=== PATIENT | female | born 1950 | race Caucasian/White ===

== ENCOUNTER 2023-05-24 07:13 | Observation (INO) | payer MEDICARE, OTHER ==
[2023-05-24 07:43] LABS: #Eosinphils 0.1 thou/uL (0.0-0.7); #Monocytes 0.3 thou/uL (0.11-0.59); #Neutrophils 2.7 thou/uL (1.40-6.50); %Basophils 0.9 % (0.0-1.0); %Eosinophils 2.4 % (0.0-10.0); %Lymphocytes 30.1 % (21.0-51.0); %Monocytes 7.2 % (0.0-10.0); %Neutrophils 59.2 % (42.0-75.0); Hematocrit 40.2 % (36.0-47.0); Hemoglobin 13.7 g/dL (12.0-16.0); Mean Corpuscular HGB CONC 34.1 g/dL (32.0-36.0); Mean Corpuscular Hemoglobin 32.2 pg (27.0-31.0); Mean Corpuscular Volume 94.6 fl (78.0-98.0); Mean Platelet Volume 10.1 fL (7.4-10.4); Platelet Count 203 10x3/uL (130-400); RBC Distribution Width 12.4 % (11.5-14.5); Red Blood Cell (RBC) Count 4.25 mill/uL (4.20-5.40); White Blood Cell (WBC) Count 4.6 10x3/uL (4.8-10.8)
[2023-05-24 08:02] LABS: PTT 26.5 sec (22.9-36.1)
[2023-05-24 08:08] LABS: ALT (SGPT) 14 U/L (8-55); AST (SGOT) 17 U/L (5-34); Albumin 4.4 g/dL (3.4-4.8); Alkaline Phosphatase 69 U/L (40-110); Anion Gap 15 mmol/L (10-20); BUN (Urea Nitrogen) 14 mg/dL (9.8-20.1); Bilirubin, Total 0.9 mg/dL (0.2-1.2); Calc. Creatinine Clearance 0 mL/min (70-130); Calcium 9.4 mg/dL (7.8-10.44); Carbon Dioxide 23 mmol/L (23-31); Chloride 107 mmol/L (98-107); Estimated GFR 61; Globulin 3.3 g/dL (2.4-3.5); Glucose 105 mg/dL (83-110); Potassium 3.2 mmol/L (3.5-5.1); Protein, Total 7.7 g/dL (5.8-8.1); Sodium 142 mmol/L (136-145)
[2023-05-24 08:26] LABS: Bacteria/HPF None Seen HPF (None Seen); Bilirubin Negative (Negative); Blood, Urine Negative (Negative); CAUTI Indications for Culture Alt mental st,lethar; Clarity Clear (Clear); Glucose, Urine (Dipstick) Normal (Negative); Ketone, Urine Negative (Negative); Leukocyte Negative Leu/uL (Negative); Nitrite Negative (Negative); Protein, Urine (Dipstick) Negative (Neg-Trace); RBC/HPF None Seen HPF (0-3); Specific Gravity, Urine 1.023 (1.002-1.036); Squamous Epithelial None Seen HPF (0-3); Urobilinogen Normal mg/dL (Less than 2); WBC/HPF 0-3 HPF (0-3); pH, Urine 6.5 (5.0-9.0)
[2023-05-24 08:29] LABS: Troponin I Less than 0.010 ng/mL (< 0.028)
[2023-05-24 08:29] LABS: Urine Culture Reflex No No
[2023-05-24] MEDS ORDERED: Aspirin Chewable 81 MG TAB ONE (09:26)
[2023-05-24] MEDS ORDERED: Senokot S 8.6-50 MG TAB PO PRN (09:39)
[2023-05-24] MEDS ORDERED: Ondansetron PF 4 MG/2 ML Vial IVP PRN (09:39)
[2023-05-24] MEDS ORDERED: Acetaminophen 325 MG TAB PO PRN (09:39)
[2023-05-24] MEDS ORDERED: Bisacodyl 5 MG TAB PO PRN (09:39)
[2023-05-24] MEDS ORDERED: hydrALAZINE 20 MG/ML VIAL SLOW IVP PRN (09:39)
[2023-05-24] MEDS ORDERED: Bisacodyl 10 MG SUPP PR PRN (09:39)
[2023-05-24] MEDS ORDERED: Labetalol HCl 100 MG/20 ML VIAL SLOW IVP PRN (09:39)
[2023-05-24] MEDS ORDERED: Electrolyte Replacement Protocol 1 EACH FS SCH (10:00)
[2023-05-24 10:04] LABS: Amphetamine Not Detected (NotDetected); Barbiturates Screen Not Detected (NotDetected); Benzodiazepine Screen Not Detected (NotDetected); Cocaine Metabolite Screen Not Detected (NotDetected); Methadone Not Detected (NotDetected); Methamphetamine Not Detected (NotDetected); Opiate Screen Not Detected (NotDetected); Oxycodone Screen Not Detected (NotDetected); Phencyclidine (PCP) Not Detected (NotDetected); THC/Cannabinoid Screen Not Detected (NotDetected); Tricyclic Screen Not Detected (NotDetected)
[2023-05-24] MEDS ORDERED: Electrolyte Replacement Protocol FS PRN (10:15)
[2023-05-24] MEDS ORDERED: Iopamidol-370 76% 500 ML MDV (1 ML CHARGE) ONE (10:43)
[2023-05-24] MEDS ORDERED: Polyethylene Glycol 3350 17 GM Packet PO PRN (10:53)
[2023-05-24] MEDS ORDERED: Polyethylene Glycol 3350 17 GM Packet PO SCH (11:00)
[2023-05-24 11:17] LABS: Hemoglobin A1c 5.7 % (4.0-6.0)
[2023-05-24] MEDS ORDERED: Polyethylene Glycol 3350 17 GM Packet ONE (12:43)
[2023-05-24] MEDS ORDERED: Potassium Chloride 20 MEQ/100 ML PREMIX BAG ONE ×2 (12:43→16:13)
[2023-05-24] MEDS: Potassium Chloride 20 MEQ in Premix 1 BAG IVPB SCH ×2 (12:50→16:15)
[2023-05-24 20:25] VITALS: BMI 17.5
[2023-05-24] MEDS ORDERED: Atorvastatin Calcium 40 MG TAB ONE (20:49)
[2023-05-24] MEDS ORDERED: Atorvastatin Calcium 40 MG TAB PO SCH (21:00)
[2023-05-24 21:11] VITALS: TEMP 98.4
[2023-05-24 21:48] LABS: Potassium 3.9 mmol/L (3.5-5.1)
[2023-05-25 01:15] VITALS: BP 128/74
[2023-05-25] MEDS ORDERED: Aspirin 81 mg Enteric Coated Tablet PO SCH (09:00)
== END 2023-05-25 01:45 | disposition short-term general hospital (02) ==
LOC: ERS 07:13 → ERHOLD 09:39
PROVIDERS: ADMIT Family Medicine; ATTEND Family Medicine
DX: R29.818 Other symptoms and signs involving the nervous system (principal); R41.82 Altered mental status, unspecified; I10 Essential (primary) hypertension; G93.41 Metabolic encephalopathy; R47.1 Dysarthria and anarthria; E87.6 Hypokalemia; R00.0 Tachycardia, unspecified; G47.33 Obstructive sleep apnea (adult) (pediatric); R73.03 Prediabetes; Z88.8 Allergy status to other drugs, medicaments and biological substances
CPT/HCPCS: 0042T; 36415; 36416; 70450; 70496; 70498; 70551; 71045; 80053; 80306; 80307; 81001; 83036; 84484; 85025; 85610; 85730; 93005; 95711; 95819; G0378; J3480